=== PATIENT | male | born 1950 | race Caucasian/White ===

== ENCOUNTER → 2017-12-08 | Outpatient (CLI) | payer OTHER ==
--- NOTE | 2017-12-08 10:18 | RADIOLOGY IMAGING REPORT ---
FACILITY: [facility] [place] PATIENT NAME: Philippe Lemus : 1950 MR: [id number] V: [id number] EXAM DATE: ORDERING PHYSICIAN: LAWRENCE MCKOY TECHNOLOGIST: Location: [facility] Patient: Philippe Lmeus : 1950 Visit/Account:[id number] Date of Sevice: 12/08/2017 CAROTID HISTORY: Amaurosis COMPARISON: None. FINDINGS: Grayscale, duplex and color Doppler interrogation of the extracranial carotid and vertebral arteries was performed bilateral. On the right, peak systolic velocities within the common and internal carotid arteries are 102 and 84 cm/sec respectively. There is a small amount of soft plaque identified in the right common carotid artery, right carotid bulb extending into the proximal right internal and external carotid arteries. Antegrade flow within the common, internal and external carotid arteries as well as vertebral artery . ICA/CCA ratio 0.9. On the left, peak systolic velocities within the common and internal carotid arteries are 116 and 88 cm/sec respectively. There is a small amount of plaque at the left common carotid artery extending t o the left carotid bulb and proximal left internal and external carotid arteries. Antegrade flow wit hin the common, internal and external carotid arteries as well as vertebral artery. ICA/CCA ratio 0.9 . IMPRESSION: Is a small amount of soft plaque seen in the common carotid arteries, carotid bulbs and extending int o the proximal internal and external carotid arteries although no hemodynamically significant lesions were identified by velocity criteria Velocity criteria are extrapolated from diameter data as defined by the Society of Radiologists in [place] [facility] Consensus Conference Radiology 2003; 229;340-346 Report Dictated By: Joycelyn Linn MD at 12/08/2017 10:10 AM Report E-Signed By: Joycelyn Linn MD at 12/08/2017 10:14 AM WSN:[facility]
== END ==
LOC: US 01:56
PROVIDERS: ATTEND Internal Medicine Interventional Cardiology
DX: I65.23 Occlusion and stenosis of bilateral carotid arteries (principal)
CPT/HCPCS: 93880